=== PATIENT | female | born 1945 | race African-American/Black ===

== ENCOUNTER 2021-06-18 11:02 | Outpatient (CLI) | payer OTHER | END 2021-06-18 12:00 | disposition home or self-care (01) | LOC: WOUND MED 11:02 | PROVIDERS: ATTEND Specialist | DX: E11.621 Type 2 diabetes mellitus with foot ulcer (principal); L97.812 Non-pressure chronic ulcer of other part of right lower leg with fat layer exposed; R60.0 Localized edema | CPT/HCPCS: 11042; G0463; A4554; A4930; A6216; A6219 ==

== ENCOUNTER 2021-06-25 09:15 | Outpatient (CLI) | payer OTHER | END 2021-06-25 10:41 | disposition home or self-care (01) | LOC: WOUND MED 09:15 | PROVIDERS: ATTEND Specialist | DX: E11.621 Type 2 diabetes mellitus with foot ulcer (principal); L97.812 Non-pressure chronic ulcer of other part of right lower leg with fat layer exposed; R60.0 Localized edema | CPT/HCPCS: 11042; A4554; A4930; A6216; A6219 ==

== ENCOUNTER 2021-07-02 09:45 | Outpatient (CLI) | payer OTHER | END 2021-07-02 10:30 | disposition home or self-care (01) | LOC: WOUND MED 09:45 | PROVIDERS: ATTEND Specialist | DX: E10.621 Type 1 diabetes mellitus with foot ulcer (principal); L97.812 Non-pressure chronic ulcer of other part of right lower leg with fat layer exposed; R60.0 Localized edema | CPT/HCPCS: 11042; A4554; A4930; A6216; A6219 ==

== ENCOUNTER 2021-07-09 09:46 | Outpatient (CLI) | payer OTHER | END 2021-07-14 14:03 | disposition home or self-care (01) | LOC: WOUND MED 09:46 | PROVIDERS: ATTEND Specialist | DX: E10.621 Type 1 diabetes mellitus with foot ulcer (principal); L97.812 Non-pressure chronic ulcer of other part of right lower leg with fat layer exposed; R60.0 Localized edema | CPT/HCPCS: 11042; A4554; A4930; A6216 ==